=== PATIENT | male | born 1975 | race Caucasian/White ===

== ENCOUNTER → 2018-07-18 | Outpatient (REF) | payer OTHER | END | disposition home or self-care (01) | LOC: CT 15:07 | PROC: BW211ZZ Computerized Tomography (CT Scan) of Abdomen and Pelvis using Low Osmolar Contrast (ICD-10-PCS; principal; 2018-07-18) | DX: K62.89 Other specified diseases of anus and rectum (principal) | CPT/HCPCS: Q9967 ==